=== PATIENT | female | born 1970 | race Caucasian/White ===

== ENCOUNTER → 2023-07-05 23:12 | Outpatient (CLI) | payer MEDICARE, SELFPAY ==
[2023-07-05 19:02] LABS: Alanine Aminotransferase 33 U/L (12-78); Albumin Level 4.5 g/dl (3.5-5.0); Albumin/Globulin Ratio 1.6 (1.1-1.8); Alkaline Phosphatase 148 U/L (38-126); Aspartate Amino Transferase 27 U/L (14-36); Bilirubin,Total 0.3 mg/dl (0.2-1.3); Blood Urea Nitrogen 25 mg/dl (7-17); Calcium 9.6 mg/dl (8.4-10.2); Carbon Dioxide 22 mmol/L (22.0-30.0); Chloride 99 mmol/L (98-107); Chol/HDL Ratio 5.5 (1-3.5); Cholesterol 213 mg/dl (140-200); Estimated Glomerular Filt Rate 76 ml/min (>60); GFR (African American) 92 ML/MIN (>60); Globulin 2.9 g/dL (1.3-3.2); HDL Cholesterol 39 mg/dl (40-60); Sodium 134 mmol/L (136-145); Total Protein,Serum 7.4 g/dl (6.3-8.2); Triglycerides 327 mg/dl (30-150); VLDL Cholesterol 65 mg/dL (0-40)
[2023-07-05 19:13] LABS: Direct LDL Cholesterol 110.16 mg/dL (100-129)
[2023-07-05 19:43] LABS: Glucose 543 mg/dl (74-100)
[2023-07-05 19:53] LABS: Hemoglobin A1C 11.5 % (4.0-6.0)
[2023-07-05 20:03] LABS: Benzodiazepines Screen,Urine Negative ng/ml (<200)
[2023-07-05 20:04] LABS: Amphetamine/Metha Screen,Urine Negative ng/ml (<1000)
[2023-07-05 20:05] LABS: Barbiturates Screen,Urine Negative ng/ml (<200); Cannabinoid Screen,Urine Positive ng/ml (<50)
[2023-07-05 20:06] LABS: Cocaine Screen,Urine Negative ng/ml (<300)
[2023-07-05 20:07] LABS: Methadone Screen,Urine Negative ng/ml (<300); Opiate Screen,Urine Negative ng/ml (<300)
[2023-07-05 20:08] LABS: Phencyclidine Screen,Urine Negative ng/ml (<25)
== END ==
PROVIDERS: PCP Family Medicine; Visit Provider Family Medicine
DX: E78.5 Hyperlipidemia, unspecified (principal); Z76.89 Persons encountering health services in other specified circumstances; E11.9 Type 2 diabetes mellitus without complications; Z79.899 Other long term (current) drug therapy; Z79.4 Long term (current) use of insulin
CPT/HCPCS: 80053; 80061; 80305; 83036

== ENCOUNTER → 2023-10-17 21:02 | Outpatient (CLI) | payer MEDICAID, SELFPAY ==
[2023-10-17 20:03] LABS: Hemoglobin A1C 12.1 % (4.0-6.0)
[2023-10-17 20:24] LABS: Chloride 97 mmol/L (98-107); Potassium 4.2 mmoL/L (3.5-5.1); Sodium 132 mmol/L (136-145)
[2023-10-17 20:26] LABS: Blood Urea Nitrogen 15 mg/dl (7-17); Estimated Glomerular Filt Rate 76 ml/min (>60); GFR (African American) 92 ML/MIN (>60)
[2023-10-17 20:27] LABS: Alanine Aminotransferase 96 U/L (12-78); Albumin Level 4.7 g/dl (3.5-5.0); Albumin/Globulin Ratio 1.6 (1.1-1.8); Anion Gap 13.2 mEq/L (5-15); Aspartate Amino Transferase 81 U/L (14-36); Bilirubin,Total 0.3 mg/dl (0.2-1.3); Carbon Dioxide 26 mmol/L (22.0-30.0); Cholesterol 216 mg/dl (140-200); Total Protein,Serum 7.7 g/dl (6.3-8.2); Triglycerides 276 mg/dl (30-150); VLDL Cholesterol 55 mg/dL (0-40)
[2023-10-17 20:28] LABS: Calcium 9.2 mg/dl (8.4-10.2); Chol/HDL Ratio 6.4 (1-3.5); HDL Cholesterol 34 mg/dl (40-60)
[2023-10-17 20:32] LABS: Glucose 470 mg/dl (74-100)
[2023-10-17 20:39] LABS: Direct LDL Cholesterol 129.33 mg/dL (100-129)
[2023-10-17 21:44] LABS: Alkaline Phosphatase 144 U/L (38-126)
== END ==
PROVIDERS: PCP Family Medicine; Visit Provider Family Medicine
DX: E11.9 Type 2 diabetes mellitus without complications (principal); Z79.4 Long term (current) use of insulin; Z79.84 Long term (current) use of oral hypoglycemic drugs
CPT/HCPCS: 80053; 80061; 83036

== ENCOUNTER 2023-12-09 23:19 | Outpatient (CLI) | payer MEDICAID, SELFPAY ==
[2023-12-09 18:55] LABS: Amphetamine/Metha Screen,Urine Negative ng/ml (<1000); Barbiturates Screen,Urine Negative ng/ml (<200); Benzodiazepines Screen,Urine Negative ng/ml (<200); Cannabinoid Screen,Urine Positive ng/ml (<50); Cocaine Screen,Urine Negative ng/ml (<300); Methadone Screen,Urine Negative ng/ml (<300); Opiate Screen,Urine Negative ng/ml (<300); Phencyclidine Screen,Urine Negative ng/ml (<25)
== END 2023-12-09 23:59 ==
LOC: LAB.DROPOF 23:19
PROVIDERS: PCP Family Medicine; Visit Provider Family Medicine
DX: Z79.899 Other long term (current) drug therapy (principal)
CPT/HCPCS: 80307

== ENCOUNTER 2024-02-07 20:02 | Outpatient (CLI) | payer MEDICAID, SELFPAY | END 2024-02-07 23:59 | LOC: LAB.DROPOF 20:02 | PROVIDERS: PCP Family Medicine; Visit Provider Family Medicine | DX: R31.9 Hematuria, unspecified (principal); B96.89 Other specified bacterial agents as the cause of diseases classified elsewhere | CPT/HCPCS: 87086 ==

== ENCOUNTER 2025-04-22 12:13 | Outpatient (CLI) | payer MEDICAID, SELFPAY ==
[2025-04-22 18:23] LABS: Basophils # 0.1 K/mm3 (0-0.2); Basophils % 0.8 % (0.1-2.0); Eosinophils # 0.1 Kmm3 (0.0-0.4); Eosinophils % 1.7 % (0.1-12.0); Hematocrit 42.2 % (37.0-47.0); Hemoglobin 13.9 g/dL (12.2-16.2); Immature Granulocytes # 0.02 10^3uL; Immature Granulocytes % 0.3 %; Lymphocytes # 1.8 K/mm3 (0.7-4.5); Mean Corpuscular HGB Conc 32.9 g/dL (31.8-35.4); Mean Corpuscular Hemoglobin 30.2 pg (27.0-31.2); Mean Corpuscular Volume 91.7 fl (81-99); Mean Platelet Volume 11.4 fl (7.4-10.4); Monocytes # 0.4 K/mm3 (0.1-1.0); Monocytes % 6.9 % (1.7-9.3); Neutrophils # 3.7 K/mm3 (1.8-7.8); Neutrophils % 60.3 % (37.0-80.0); Nucleated Red Blood Cells # 0 10^3/uL; Nucleated Red Blood Cells % 0 %; Platelet Count 161 K/mm3 (142-424); Red Cell Distribution Width 13.2 % (11.5-17.5); Red Cell Distribution Width-SD 44.7 fL; White Blood Count 6.1 K/mm3 (4.8-10.8)
[2025-04-22 19:12] LABS: Albumin Level 4.2 g/dl (3.5-5.0); Chloride 103 mmol/L (98-107); Potassium 4.2 mmoL/L (3.5-5.1); Sodium 135 mmol/L (136-145)
[2025-04-22 19:14] LABS: Alanine Aminotransferase 28 U/L (12-78); Aspartate Amino Transferase 24 U/L (14-36); Blood Urea Nitrogen 15 mg/dl (7-17); Estimated Glomerular Filt Rate 65 ml/min (>60); GFR (African American) 79 ML/MIN (>60)
[2025-04-22 19:15] LABS: Albumin/Globulin Ratio 1.7 (1.1-1.8); Alkaline Phosphatase 96 U/L (38-126); Anion Gap 11.2 mEq/L (5-15); Bilirubin,Total 0.3 mg/dl (0.2-1.3); Calcium 9.6 mg/dl (8.4-10.2); Carbon Dioxide 25 mmol/L (22.0-30.0); Chol/HDL Ratio 4.8 (1-3.5); Cholesterol 179 mg/dl (140-200); Globulin 2.5 g/dL (1.3-3.2); HDL Cholesterol 37 mg/dl (40-60); Total Protein,Serum 6.7 g/dl (6.3-8.2); Triglycerides 175 mg/dl (30-150); VLDL Cholesterol 35 mg/dL (0-40)
[2025-04-22 19:26] LABS: Direct LDL Cholesterol 107.79 mg/dL (100-129)
[2025-04-22 19:54] LABS: Creatinine,Urine Random 39 mg/dL (Not Estab.); Microalbumin < 6.000 mg/L (0-16.7)
[2025-04-22 19:56] LABS: HIV Combo NEGATIVE (Negative)
[2025-04-22 20:01] LABS: Glucose 466 mg/dl (74-100)
[2025-04-22 20:05] LABS: Hepatitis C Ab Qual. W/ RFX REACTIVE (Negative)
== END 2025-04-22 23:59 | disposition home or self-care (01) ==
LOC: LAB.DROPOF 22:38
PROVIDERS: PCP Family Medicine; Visit Provider Family Medicine
DX: E11.9 Type 2 diabetes mellitus without complications (principal); I10 Essential (primary) hypertension
CPT/HCPCS: 80053; 80061; 80074; 82043; 82570; 85025; 87389; 87522

== ENCOUNTER 2025-11-03 08:37 | Outpatient (CLI) | payer MEDICAID, SELFPAY ==
[2025-11-03 17:19] LABS: Alanine Aminotransferase 23 U/L (12-78); Albumin Level 4.9 g/dl (3.5-5.0); Albumin/Globulin Ratio 1.6 (1.1-1.8); Alkaline Phosphatase 114 U/L (38-126); Anion Gap 14.1 mEq/L (5-15); Aspartate Amino Transferase 24 U/L (14-36); Bilirubin,Total 0.7 mg/dl (0.2-1.3); Blood Urea Nitrogen 10 mg/dl (7-17); Calcium 9.9 mg/dl (8.4-10.2); Carbon Dioxide 24 mmol/L (22.0-30.0); Chloride 94 mmol/L (98-107); Cholesterol 185 mg/dl (140-200); Creatinine,Serum 0.70 mg/dl (0.52-1.04); Estimated Glomerular Filt Rate 88 ml/min (>60); GFR (African American) 106 ML/MIN (>60); Globulin 3.0 g/dL (1.3-3.2); HDL Cholesterol 45 mg/dl (40-60); Potassium 4.1 mmoL/L (3.5-5.1); Sodium 128 mmol/L (136-145); Total Protein,Serum 7.9 g/dl (6.3-8.2); Triglycerides 122 mg/dl (30-150)
[2025-11-03 17:26] LABS: Glucose 463 mg/dl (74-100)
== END 2025-11-03 23:59 ==
LOC: LAB.DROPOF 11-05 08:37
PROVIDERS: PCP Family Medicine; Visit Provider Family Medicine
DX: F41.9 Anxiety disorder, unspecified (principal); F32.A Depression, unspecified; E11.9 Type 2 diabetes mellitus without complications
CPT/HCPCS: 80053; 80061; 82043; 82570